=== PATIENT | male | born 1970 | race Two or more races ===

== ENCOUNTER 2020-06-03 21:10 | Emergency (ER) | payer OTHER, SELFPAY ==
[2020-06-03 21:19] VITALS: BP 138/74; PULSE 87; RESP 15; TEMP 36.2; O2SAT 98; BMI 32.4
[2020-06-03 23:19] VITALS: BP 112/68; PULSE 75; RESP 16; TEMP 36.8; O2SAT 99
--- NOTE | 2020-06-04 | US_ITS ---
EXAMINATION: DOPPLER VENOUS ULTRASOUND EXTREMITY, RIGHT CLINICAL INFORMATION: Right lower extremity edema and swelling. COMPARISON: None. TECHNIQUE: Mei-scale, Doppler and spectral analysis of the lower extremity was performed. FINDINGS: There is no evidence for a deep venous thrombosis within the visualized lower extremity veins. There is normal flow, compression and augmentation. ADDITIONAL FINDINGS: No Evans's cyst is identified. IMPRESSION: Unremarkable examination. Specifically, no evidence for DVT.
--- NOTE | 2020-06-04 00:10 | PC.NURSE ---
Pt left leg is red and swollen, pt reports he believe he got bitten by something. pt reports having a headache and chills.
[2020-06-04 00:44] LABS: MANUAL DIFF FLAG NO
[2020-06-04 00:51] LABS: Basophils Percent Auto 0.2 % (0-2); Eosinophils Absolute Auto 0.1 X10*3/uL (0.0-0.4); Eosinophils Percent Auto 0.7 % (0-4); Hematocrit 40.5 % (42-52); Hemoglobin 13.6 g/dl (14.0-18.0); Imm Gran Abs Auto 0.07 X10*3/uL (0.00-0.03); Imm Gran Pct Auto 0.6 % (0.0-0.4); Lymphocytes Percent Auto 9.2 % (20-40); Mean Corpuscular HGB Conc 33.6 g/dl (31.0-36.0); Mean Corpuscular Hemoglobin 27.5 pg (27.0-33.0); Mean Platelet Volume 10.7 fL (9.4-12.4); Monocytes Absolute Auto 0.8 X10*3/uL (0.1-1.2); Neutrophils Absolute Auto 9.2 X10*3/uL (2.0-8.3); Neutrophils Percent Auto 82.3 % (45-73); Platelet Count 138 X10*3/uL (160-400); Red Blood Count 4.94 X10*6/uL (4.60-5.80); Red Cell Distribution Width 13.6 % (11.0-16.0); White Blood Count 11.2 X10*3/uL (4.8-10.8)
[2020-06-04 01:07] LABS: Partial Thromboplastin Time 94.8 SEC (24.1-38.0)
--- NOTE | 2020-06-04 01:25 | ED_ITS ---
HPI - General Adult General Chief complaint: General Medical Stated complaint: RED INFLAMED SKIN Time Seen by Provider: 06/04/20 00:19 History of Present Illness HPI narrative: this is a 50-year-old male who presents with 3 days of worsening right lower extremity swelling, redness, pain and a noted scab to the posterior aspect that he thinks may have been a spider bite. He states he really did not notice anything until about 3 days ago he experienced transient fevers and chills which then resolved and were not associated with any sore throat, new cough, diarrhea, urinary symptoms, or recent travel. He then endorses that 2 days ago he noticed that his right lower leg began increasing in size and he noticed the red patches And then today began worsening with increased pain on ambulation, swelling but denies any fevers, chills. In addition, he denies any abdominal pain, nausea, vomiting. Related Data Allergies Allergy/AdvReac Type Severity Reaction Status Date / Time No Known Allergies Allergy Verified 06/03/20 21:19 Review of Systems Review of Systems: Pertinent positives and negatives as stated in HPI 10 point review of systems is otherwise negative. PMFSH Past Medical History Medical History Hypothyroid Social History Social History Smoking Status: Light tobacco smoker Smoked in Last 30 Days: Yes Use of substances other than those prescribed or required for medical reasons: No Advance Directives: No Advance Directives Information Provided: No Physical Exam Vital Signs and I&O and Narrative: Vital Signs and I&O: Vital Signs Temp 98.3 F 06/03/20 23:19 Pulse 75 06/03/20 23:19 Resp 16 06/03/20 23:19 BP 112/68 06/03/20 23:19 Pulse Ox 99 06/03/20 23:19 Intake & Output 06/03/20 06/04/20 06/04/20 18:59 06:59 18:59 Weight 88.451 kg Body Mass Index 32.4 VITAL SIGNS: Reviewed. GENERAL: Well developed, well nourished, in no acute distress. HEAD: Normocephalic/atraumatic, EYES: PERRLA, EOMI intact without pain, no nystagmus/pallor/icterus noted EARS: Ext canals without abnormality, TMs non-bulging and non-erythematous NOSE: Nares patent bilateral OROPHARYNX: no oral lesions noted, posterior pharynx clear and non-erythematous without noted tonsillar enlargement/erythema/exudates NECK: Supple, no adenopathy LUNGS: Normal breath sounds. No adventitious sounds or accessory muscle use. SpO2<> CARDIOVASCULAR: Regular rate and rhythm without noted murmurs, no JVD or lower extremity edema. ABDOMEN: Soft, non-tender, non-distended with bowel sounds. No rigidity. No guarding. No palpable masses or hernias noted MUSCULOSKELETAL: No tenderness, deformities, or effusions noted on gross inspection. EXTREMITIES: RLE is edematous without pitting and has large purpuric lesions to the circumferential aspect with a noted eschar and no evidence of necrosis. Pulses and capillary refill are present. Swelling involves ankle and foot. SKIN: Inspection of the skin reveals no rashes, ulcerations, jaundice, pallor, or petechiae. NEUROLOGIC: Alert and oriented x 4. Strength and sensation to light touch were grossly intact Course Course Hospital Course: Review of all lab work and venous duplex significant for prolonged PT/PTT, mild leukocytosis, thrombocytopenia, and an elevated ESR. There was no evidence of DVT. Patient was informed that he may need to be admitted for further observation given the results that were discussed with him. He declined admission, stating that he had to get to [place] today . He was informed that a a minimum he would need to be on empiric antibiotics with close PCP follow up and stated understanding. I was informed by nursing that patient eloped without paperwork or prescriptions. Medical Decision Making MDM Narrative Medical decision making narrative: This is a 50-year-old male with history and clinical presentation most consistent with toxin related insect bite, but will rule out DVT or cellulitis. Lab Data Result diagrams: 06/04/20 00:37 06/04/20 00:37 Labs: Lab Results 06/04/20 06/04/20 06/04/20 Range/Units 00:37 00:37 00:37 WBC 11.2 H (4.8-10.8) X10*3/uL RBC 4.94 (4.60-5.80) X10*6/uL Hgb 13.6 L (14.0-18.0) g/dl Hct 40.5 L (42-52) % MCV 82.0 (80-98) fL MCH 27.5 (27.0-33.0) pg MCHC 33.6 (31.0-36.0) g/dl RDW 13.6 (11.0-16.0) % Plt Count 138 L (160-400) X10*3/uL MPV 10.7 (9.4-12.4) fL Immature Gran % (Auto) 0.6 H (0.0-0.4) % Neut % (Auto) 82.3 H (45-73) % Lymph % (Auto) 9.2 L (20-40) % [place] % (Auto) 7.0 (2-11) % Eos % (Auto) 0.7 (0-4) % Baso % (Auto) 0.2 (0-2) % Neut # (Auto) 9.2 H (2.0-8.3) X10*3/uL Lymph # (Auto) 1.0 L (1.2-4.9) X10*3/uL [place] # (Auto) 0.8 (0.1-1.2) X10*3/uL Eos # (Auto) 0.1 (0.0-0.4) X10*3/uL Baso # (Auto) 0.0 (0.0-0.2) X10*3/uL Abs Immat Gran (auto) 0.07 H (0.00-0.03) X10*3/uL Absolute Nucleated RBC 0.000 (0.0-0.012) X10*3/uL Nucleated RBC % (auto) 0.0 (0.0-0.2) /100WBC ESR 54 H (0-15) MM/HR PT 13.6 H (10.8-13.0) SEC INR 1.1 (0.9-1.1) APTT 94.8 H* (24.1-38.0) SEC Sodium (135-145) mmol/L Potassium (3.3-5.1) mmol/l Chloride (96-108) mmol/L Carbon Dioxide (22-29) mmol/L Anion Gap (12-20) BUN (9-16) mg/dL Creatinine (0.5-1.4) mg/dL Estim Creat Clear Calc Estimated GFR Random Glucose (60-115) mg/dL Calcium (8.4-10.2) mg/dL Total Bilirubin (0.0-1.0) mg/dL AST (5-37) U/L ALT (0-40) U/L Alkaline Phosphatase (39-117) U/L Total Protein (6.5-8.0) g/dL Albumin (3.5-5.0) g/dL 06/04/20 06/04/20 Range/Units 00:37 01:49 WBC (4.8-10.8) X10*3/uL RBC (4.60-5.80) X10*6/uL Hgb (14.0-18.0) g/dl Hct (42-52) % MCV (80-98) fL MCH (27.0-33.0) pg MCHC (31.0-36.0) g/dl RDW (11.0-16.0) % Plt Count (160-400) X10*3/uL MPV (9.4-12.4) fL Immature Gran % (Auto) (0.0-0.4) % Neut % (Auto) (45-73) % Lymph % (Auto) (20-40) % [place] % (Auto) (2-11) % Eos % (Auto) (0-4) % Baso % (Auto) (0-2) % Neut # (Auto) (2.0-8.3) X10*3/uL Lymph # (Auto) (1.2-4.9) X10*3/uL [place] # (Auto) (0.1-1.2) X10*3/uL Eos # (Auto) (0.0-0.4) X10*3/uL Baso # (Auto) (0.0-0.2) X10*3/uL Abs Immat Gran (auto) (0.00-0.03) X10*3/uL Absolute Nucleated RBC (0.0-0.012) X10*3/uL Nucleated RBC % (auto) (0.0-0.2) /100WBC ESR (0-15) MM/HR PT 13.6 H (10.8-13.0) SEC INR 1.1 (0.9-1.1) APTT (24.1-38.0) SEC Sodium 136 (135-145) mmol/L Potassium 4.6 (3.3-5.1) mmol/l Chloride 101 (96-108) mmol/L Carbon Dioxide 29 (22-29) mmol/L Anion Gap 11 L (12-20) BUN 19 H (9-16) mg/dL Creatinine 1.04 (0.5-1.4) mg/dL Estim Creat Clear Calc 88.8 Estimated GFR > 60 Random Glucose 118 H (60-115) mg/dL Calcium 8.4 (8.4-10.2) mg/dL Total Bilirubin 0.6 (0.0-1.0) mg/dL AST 28 (5-37) U/L ALT 32 (0-40) U/L Alkaline Phosphatase 61 (39-117) U/L Total Protein 6.7 (6.5-8.0) g/dL Albumin 4.1 (3.5-5.0) g/dL Discharge Plan Discharge Clinical Impression: Abscess or cellulitis of foot Patient Disposition: Elopement Discharge Date/Time: 06/04/20 02:40
[2020-06-04 01:36] LABS: INTERNATIONAL NORM RATIO 1.1 (0.9-1.1); Prothrombin Time 13.6 SEC (10.8-13.0)
[2020-06-04 01:38] LABS: Erythrocyte Sedimentation Rate 54 MM/HR (0-15)
--- NOTE | 2020-06-04 01:44 | PC.NURSE ---
Notified pt there could be a possibility of pt could be admitted. pt reports he can not stay in hospital . provider is aware.
[2020-06-04 01:56] LABS: Alanine Aminotransferase 32 U/L (0-40); Albumin Level 4.1 g/dL (3.5-5.0); Alkaline Phosphatase 61 U/L (39-117); Anion Gap 11 (12-20); Aspartate Amino Transferase 28 U/L (5-37); Bilirubin Total 0.6 mg/dL (0.0-1.0); Blood Urea Nitrogen 19 mg/dL (9-16); Calcium 8.4 mg/dL (8.4-10.2); Carbon Dioxide 29 mmol/L (22-29); Chloride 101 mmol/L (96-108); Creatinine Clr Calc Pharmacy 88.8; Estimated Glomerular Filt Rate > 60; Glucose Random 118 mg/dL (60-115); Potassium 4.6 mmol/l (3.3-5.1); Sodium 136 mmol/L (135-145); Total Protein 6.7 g/dL (6.5-8.0)
[2020-06-04 02:09] LABS: INTERNATIONAL NORM RATIO 1.1 (0.9-1.1); Prothrombin Time 13.6 SEC (10.8-13.0)
== END 2020-06-04 02:40 | disposition left against medical advice (07) ==
LOC: HO.ED 06-04 00:27
PROVIDERS: Student in an Organized Health Care Education/Training Program; Emergency Provider Emergency Medicine
DX: M79.671 Pain in right foot (principal); M79.89 Other specified soft tissue disorders
CPT/HCPCS: 36415; 80053; 85025; 85610; 85652; 85730; 90471; 93971; 99284

== ENCOUNTER 2020-06-22 21:04 | Emergency (ER) | payer OTHER, SELFPAY ==
[2020-06-22 21:08] VITALS: BP 114/64; PULSE 80; RESP 16; TEMP 36.8; O2SAT 97; BMI 39.0
--- NOTE | 2020-06-22 21:52 | CT_ITS ---
EXAMINATION: CT HEAD WITHOUT CONTRAST CT CERVICAL SPINE WITHOUT CONTRAST CLINICAL INFORMATION: Trauma COMPARISON: None. TECHNIQUE: Multidetector CT imaging of the head and cervical spine was performed without the use of intravenous contrast. Multiplanar reformats are reviewed. This CT examination was performed using dose optimization techniques as appropriate, variously including the following: *Automated exposure control *Adjustment of mA and/or kV according to patient size (this includes techniques or standardized protocols for targeted exams where dose is matched to indication/reason for exam; i.e. extremities or head) *Use of iterative reconstruction technique DLP: 1473 mGy-cm. FINDINGS: There is no evidence of acute intracranial hemorrhage or territorial infarction. No abnormal mass effect or midline shift is seen. Mei to white matter differentiation is well preserved. No extra-axial fluid collections are identified. The ventricles are normal in size. There is no abnormal attenuation within the brain parenchyma. The osseous structures and soft tissues are normal. The mastoid air cells and visualized portions of the paranasal sinuses are well-aerated. Atlantooccipital alignment is maintained. The vertebral bodies and posterior elements align normally. No acute fracture or subluxation. Vertebral body heights are maintained. Small endplate osteophytes present throughout the cervical spine. The cervicomedullary junction and spinal cord are grossly unremarkable. The paraspinal soft tissues are unremarkable. The imaged lung apices are clear IMPRESSION: No acute intracranial pathology. No cervical spine fracture or subluxation.
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
== END 2020-06-22 23:58 | disposition home or self-care (01) ==
PROVIDERS: Emergency Provider Emergency Medicine
DX: S13.4XXA Sprain of ligaments of cervical spine, initial encounter (principal); S13.9XXA Sprain of joints and ligaments of unspecified parts of neck, initial encounter; V49.60XA Unspecified car occupant injured in collision with unspecified motor vehicles in traffic accident, initial encounter; F17.219 Nicotine dependence, cigarettes, with unspecified nicotine-induced disorders; Y93.89 Activity, other specified; Y92.414 Local residential or business street as the place of occurrence of the external cause; Y99.9 Unspecified external cause status
CPT/HCPCS: 70450; 72125; 99284

== ENCOUNTER 2023-07-14 09:17 | Emergency (ER) | payer OTHER, SELFPAY ==
--- NOTE | ~2023-07-14 | XR_ITS ---
EXAMINATION: XR CHEST CLINICAL INFORMATION: Reason for Exam cough, SOB COMPARISON: None TECHNIQUE: 2 views of the chest FINDINGS: Lines and tubes: None. Clear lungs. No pleural effusion. No pneumothorax. Normal cardiomediastinal silhouette. XR/XR chest 2V IMPRESSION: * Clear lungs.
[2023-07-14 09:35] VITALS: BP 129/69; PULSE 61; RESP 20; TEMP 36.4; O2SAT 98; BMI 40.1
--- NOTE | 2023-07-14 10:36 | ED_ITS ---
HPI - URI/Sore Throat General Chief Complaint: Upper Respiratory Symptoms Stated Complaint: Cough 1 week Time Seen by Provider: 07/14/23 10:12 Source: patient Mode of arrival: ambulatory Limitations: no limitations History of Present Illness HPI Narrative: patient is a 54-year-old male who presents emergency department for evaluation of upper respiratory symptoms. He has been experiencing a intermittent product azra cough with yellow phlegm, nasal congestion for 1 week, shortness of breath with exertion as this provokes cough. Denies fevers, chills, headache, neck pain, sore throat, chest pain, difficulty breathing while at rest, nausea vomiting, abdominal pain, numbness or tingling of the extremities, edema. Denies any known sick contacts. Related Data Previous Rx's Medication Instructions Recorded cyclobenzaprine 10 mg tablet 10 mg PO TID PRN muscle spasm #14 06/22/20 tabs albuterol sulfate 90 mcg/actuation 2 puff inhalation Q4-6H PRN 07/14/23 aerosol inhaler shortness of breath or wheezing #6.7 grams azithromycin 250 mg tablet See Rx Instructions PO .COMPLEX #6 07/14/23 tabs prednisone 20 mg tablet 40 mg (2 x 20 mg) PO DAILY #10 tabs 07/14/23 Allergies Allergy/AdvReac Type Severity Reaction Status Date / Time No Known Allergies Allergy Verified 06/03/20 21:19 Review of Systems Review of Systems: Yes all other systems are reviewed and are negative [facility] Past Medical History Attestation statement: The following information was validated with the patient. Source: old records reviewed Medical History Hypothyroid Social History Social History Alcohol intake: never Advance Directives: No Advance Directives Information Provided: No Physical Exam Vital Signs: Vital Signs: Last Vital Signs Temp 98.0 F 07/14/23 12:04 Pulse 56 07/14/23 12:04 Resp 18 07/14/23 12:04 BP 112/66 07/14/23 12:04 Pulse Ox 97 07/14/23 12:04 O2 Del Method Room Air 07/14/23 12:04 BMI result Body Mass Index 40.1 Appearance: Alert.?Oriented to person, place and time. No acute distress.?Normal affect. Eyes: Pupils equal, round and reactive to light.? ENT: TM normal bilaterally. Pharynx normal.?? Neck: Normal inspection.? Neck supple.??No cervical adenopathy CVS: Heart sounds normal. Normal heart rate and rhythm.? Pulses normal.?? Respiratory: No respiratory distress.? Lung sounds clear With rhonchi bilaterally and faint inspiratory wheezing? to the upper lobes Abdomen: Soft and non-tender. Normoactive bowel sounds. Skin: Skin warm and dry.? Normal skin color.? ? Extremities: No lower extremity edema.? Neuro: Moves all extremities spontaneously. Sensation intact bilaterally. No motor deficits. Ambulates with normal steady gait. Medical Decision Making Medical Decision Making [facility] Narrative: Patient is a 53-year-old male, presenting for evaluation of upper respiratory symptoms. COVID-19 testing _. Influenza testing _. RSV testing _. At this time history and physical exam not consistent with ACS/PE. Chest x-ray reveals _. Overall he is well-appearing, nontoxic, afebrile, no tachycardia or tachypnea/hypoxia. Speaking clear full sentences, ambulatory with steady gait. Rhonchi with faint inspiratory wheezing bilaterlal, sent RX for Albuterol inha ler, and prednisone, Discussed conservative treatment including rest, hydration, Tylenol/ibuprofen as needed for fever and body aches, saline nasal spray, humidifier, [id number] cold medication. Advised to follow-up with primary care provider as needed, discussed reasons to return back to the emergency department. All questions were answered. Patient discharged home in stable condition. Provided with a return to work/school note. Offered Tamiflu Offered monoclonal antibody Differential Diagnosis Differential Diagnoses: The differential diagnosis associated with the presentation includes ( as noted above) Lab Data [facility] Lab Attestation statement: I reviewed the patient's lab results. ( as noted above) Labs: Lab Results 07/14/23 Range/Units 09:48 Influenza Type A (PCR) NEGATIVE (Negative) Influenza Type B (PCR) NEGATIVE (Negative) RSV RNA Qual (PCR) NEGATIVE (Negative) SARS-CoV-2 RNA (RT-PCR) NEGATIVE (Negative) Independent Interpretation I performed an independent interpretation of an: Plain X-Ray ( I personally interpreted chest x-ray and agree with radiologist impression.) Radiology Impression Discussion of test interpretation with radiology: I have reviewed the radiologist's reading. External Record Review External record reviewed: Outpatient record Prescription Management I considered prescription management with: Antibiotic and Other ( Albuterol inhaler, prednisone) Discharge Plan Discharge Clinical Impression: Bronchitis Patient Disposition: Home, Self-Care Instructions: Acute Bronchitis (ED) Prescriptions: New prednisone 20 mg tablet 40 mg PO DAILY Qty: 10 0RF albuterol sulfate 90 mcg/actuation HFA aerosol inhaler 2 puff inhalation Q4-6H PRN (Reason: shortness of breath or wheezing) Qty: 6.7 0RF azithromycin 250 mg tablet See Rx Instructions .ROUTE .COMPLEX Qty: 6 0RF Rx Instructions: For 250 mg dose pack: take 500 mg today (day 1), then 250 mg for 4 days (days 2-5) No Action cyclobenzaprine 10 mg tablet 10 mg PO TID PRN (Reason: muscle spasm) Qty: 14 0RF Interventions: ED Discharge Assessment Last Done: 07/14/23 12:16 Discharge Date/Time: 07/14/23 12:17
[2023-07-14 10:48] LABS: Influenza A PCR NEGATIVE (Negative); Influenza B PCR NEGATIVE (Negative); Resp Syncy Virus RNA Qual PCR NEGATIVE (Negative); SARS COV2 PCR INHOUSE NEGATIVE (Negative)
[2023-07-14 12:04] VITALS: BP 112/66; PULSE 56; RESP 18; TEMP 36.7; O2SAT 97
== END 2023-07-14 12:17 | disposition home or self-care (01) ==
PROVIDERS: Emergency Provider Emergency Medicine Emergency Medical Services
DX: J40 Bronchitis, not specified as acute or chronic (principal); R06.02 Shortness of breath; Z20.822 Contact with and (suspected) exposure to COVID-19; Z20.828 Contact with and (suspected) exposure to other viral communicable diseases
CPT/HCPCS: 0241U; 71046; 99283

== ENCOUNTER 2024-09-20 21:09 | Emergency (ER) | payer MEDICAID, SELFPAY ==
--- NOTE | ~2024-09-20 | CT_ITS ---
CLINICAL HISTORY: low back pain CT lumbar spine without contrast Comparison: None Findings: Normal vertebral body alignment. There are no fractures or subluxations. There is a diffuse annular bulge at the L1-L2 level deforming dural sac. There is an associated osteophytic ridge. There is narrowing of the right neural foramen at this level. There is a large diffuse annular bulge at the L4-5 level. There is facet arthropathy and ligamentum flavum hypertrophy at this level with severe central spinal stenosis. There is bilateral foraminal narrowing at this level. There is a least moderate central spinal stenosis at the L3-4 level. There is degenerative disc disease with disc space narrowing at L4-5 and L5-S1. Moderate central spinal stenosis at L3-L4. Visualized abdominal contents unremarkable. Facet arthropathy is noted particularly at the L3-4 through L5-S1 levels. No bony destructive changes are noted. The paraspinal soft tissues are unremarkable. IMPRESSION: 1. No acute abnormalities are noted. 2. Diffuse annular bulge forms the dural sac at the L1-L2 level. There is bilateral foraminal narrowing at this level. 3. Diffuse bulge at the L4-5 level with central spinal stenosis and bilateral neural foraminal narrowing. 4. Degenerating discs and facet arthropathy as above. This document has been electronically signed by: Richard Mckeon MD on 09/20/2024 23:30:36
[2024-09-20 21:11] VITALS: BP 136/68; PULSE 79; RESP 18; TEMP 36.9; O2SAT 95; BMI 38.8
--- NOTE | 2024-09-20 21:52 | ED_ITS ---
HPI - General Adult General Chief complaint: Back Pain/Injury Stated complaint: Back Pain Time Seen by Provider: 09/20/24 21:52 Source: patient Mode of arrival: ambulatory Limitations: no limitations History of Present Illness ED Provider: Elba Jorgensen PA-C HPI narrative: Patient is a 54 year old assigned male at with a history of multiple disc issues presenting to the emergency department today with back pain. Patient states that yesterday he took a nap after eating and woke up with low back pain that radiates into both of his thighs. Patient states that he has had issues with his sciatic nerve before and this feels different. Patient states that he has a history of multiple discs in his back having issues but is not sure what discs or what issues. Patient denies any numbness, tingling, or difficulty ambulating. Patient states that the pain is worse when he turns certain directions. Patient denies any dizziness, lightheadedness, abdominal pain, nausea, vomiting, fever, chills, blurry vision, double vision, loss of vision, chest pain, difficulty breathing, shortness of breath, night sweats, pain with urination, increased urinary frequency, increased urinary urgency, blood in his urine or stool, syncope or a near syncopal episode, recent trauma or falls, bowel incontinence, bladder incontinence, or any other complaints at this time. Onset (ago): day(s) (1) Location: back Radiation: extremity and distal Relieving factors: none Exacerbating factors: movement Associated symptoms: denies other symptoms Treatments prior to arrival: none Related Data Previous Rx's ?Medication ?Instructions ?Recorded cyclobenzaprine 10 mg tablet 10 mg PO TID PRN muscle spasm #14 06/22/20 tabs albuterol sulfate 90 mcg/actuation 2 puff inhalation Q4-6H PRN 07/14/23 aerosol inhaler shortness of breath or wheezing #6.7 grams azithromycin 250 mg tablet See Rx Instructions PO .COMPLEX #6 07/14/23 tabs prednisone 20 mg tablet 40 mg (2 x 20 mg) PO DAILY #10 tabs 07/14/23 Allergies Allergy/AdvReac Type Severity Reaction Status Date / Time No Known Allergies Allergy Verified 09/20/24 21:17 Review of Systems 2 Constitutional: Constitutional: Reports no additional constitutional complaints, Denies chills, Denies fever(s) and Denies night sweats Eyes: Eyes: Reports no additional eye complaints, Denies blurry vision, Denies change in vision, Denies diplopia, Denies eye discharge, Denies loss of vision and Denies eye pain ENT: Denies dizziness Cardiovascular: Cardiovascular: Reports no additional cardiovascular complaints, Denies chest pain, Denies lightheadedness, Denies Loss of Consciousness and Denies dyspnea Respiratory: Respiratory: Reports no additional respiratory complaints and Denies dyspnea Gastrointestinal: Gastrointestinal: Reports no additional gastrointestinal complaints, Denies abdominal pain, Denies melena, Denies hematochezia, Denies change in bowel habits and Denies change in stool character Genitourinary: Genitourinary: Reports no additional male genitourinary complaints, Denies hematuria, Denies oliguria, Denies difficulty urinating, Denies dysuria, Denies urinary frequency, Denies urinary hesitancy, Denies urinary incontinence and Denies urinary urgency Musculoskeletal: Musculoskeletal: Reports no additional musculoskeletal complaints, Denies numbness and Denies tingling Comments: back pain Neurologic: Denies dizziness, Denies loss of vision, Denies numbness and Denies tingling Psychiatric: Psychiatric: Reports no additional psychiatric complaints Endocrine: Endocrine: Reports no additional endocrine complaints Hematologic/Lymphatic: Hematologic/Lymphatic: Reports no additional hematologic/lymphatic complaints Allergic/Immunologic: Allergic/Immunologic: Reports no additional allergic/immunologic complaints PMFSH Past Medical History Attestation statement: The following information was validated with the patient. Source: old records reviewed and nursing notes reviewed Medical History Hypothyroid Social History Social History Alcohol intake: never Advance Directives: No Advance Directives Information Provided: No Do you have a plan to hurt others: No Plan Physical Exam ED Vital Signs: Vital Signs - 24 hr 09/20/24 21:11 Temperature 98.5 F Pulse Rate 79 Respiratory Rate 18 Blood Pressure 136/68 Pulse Oximetry 95 Oxygen Delivery Method Room Air BMI result Body Mass Index 38.8 Const General: cooperative, no acute distress, alert and awake Nutritional Appearance: well nourished Orientation/consciousness: patient oriented x3 Limitations: no limitations HENMT Head: Yes normal to inspection and Yes atraumatic Ears: hearing grossly normal bilaterally and external ears normal General nose exam: Normal external nose present, no nasal discharge noted and no epistaxis Face and sinus: Yes normal facial exam, No abrasion and No laceration Mouth: Normal oral and palatal mucosa present, no drooling and no muffled voice Eyes General: appearance normal, both eyes and all related structures Periorbital: periorbital findings normal Eyelids: Yes eyelids normal Conjunctivae: conjunctivae normal Pupils: Equal, round and reactive pupils present EOM: EOMs intact bilaterally Neck Neck: Yes normal visual inspection, Yes full ROM and Yes no lymphadenopathy Chest Chest palpation & inspection: normal inspection of the chest Resp Effort & Inspection: normal respiratory effort and able to speak in complete sentences GI Inspection: Yes normal to inspection General: Yes no CVA tenderness Back/Spine/Pelvis Back: no CVA tenderness Cervical Spine: normal cervical lordosis and cervical ROM normal Thoracic/Lumbar Spine: thoracic and lumbar spine normal to inspection and thoraco-lumbar ROM normal Pelvis: no pain with anterior-posterior compression Neuro General: patient oriented x3 and moves all extremities Cranial nerves: Yes Equal, round and reactive pupils present Cognition (Neuro): normal cognition Extrem General: Yes normal to inspection, Yes full ROM and Yes capillary refill normal Psych Appearance: grossly normal Mental Status: mental status grossly normal Affect: normal affect Attitude: cooperative Thought process: Normal thought process present Thought content: Normal thought content present Insight: Good insight present (Psych) Medications Administered Discontinued Medications Generic Name Dose Route Start Last Admin Trade Name Freq PRN Reason Stop Dose Admin Cyclobenzaprine HCl 5 mg 09/20/24 21:57 09/20/24 23:19 Cyclobenzaprine Hcl 5 Mg Tablet PO 09/20/24 21:58 5 mg ONCE ONE Administration Diazepam 2.5 mg 09/20/24 21:57 09/20/24 23:43 Diazepam 10 Mg/2 Ml Cartridge IVPUSH 09/20/24 21:58 2.5 mg STAT STA Administration Ketorolac Tromethamine 15 mg 09/20/24 21:57 09/20/24 23:43 Ketorolac Tromethamine 15 Mg/Ml Vial IVPUSH 09/20/24 21:58 15 mg ONCE ONE Administration Methylprednisolone Sodium Succinate 60 mg 09/20/24 23:44 09/20/24 23:49 Methylprednisolone Sod Succ 125 Mg/2 Ml Vial IVPUSH 09/20/24 23:45 60 mg ONCE ONE Administration Medical Decision Making Medical Decision Making [facility] Narrative: Patient is a 54 year old assigned male at with a history of multiple disc issues presenting to the emergency department today with back pain. Patient's physical exam was unremarkable. Patient's blood work was unremarkable. Patient's EKG was unremarkable. Patient's lumbar spine CT showed diffuse annular bulge from the dural sac at the L1-L2 level with bilateral foraminal narrowing and diffuse bulge at the L4-5 level with central spinal stenosis and bilateral neural foraminal narrowing as well as degenerating discs and facet arthropathy with disc space narrowing at L4-5 + and L5-S1. I explained my physical exam findings as well as all test results to the patient. I answered all questions asked by the patient. Patient received IV valium, toradol, solu-medrol, and PO Flexeril which, upon re-evaluation, he stated it helped his pain significantly. I stressed the importance of the patient taking his medication as directed (either prescribed or as the over the counter packaging recommends). 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 I stressed the importance of the patient returning to the emergency department immediately if his symptoms were to worsen or if he were to develop any dizziness, shortness of breath, difficulty breathing, chest pain, blurry vision, loss of vision, nausea, vomiting, abdominal pain, fever, chills, back pain, or any other complaints. Patient verbalized agreement and understanding with this treatment plan and discharge. Differential Diagnosis Differential Diagnoses: The differential diagnosis associated with the presentation includes Disc disease Bulging disc Lumbar spine strain Lumbar spine sprain Admission/Observation Consideration of admission/observation: Escalation of care including admission/observation considered Patient would have been admitted to the hospital had his work up had any findings where hospital admission was appropriate and his clinical presentation warranted hospital admission. Lab Data [facility] Lab Attestation statement: I reviewed the patient's lab results. My interpretation of these results are in the MDM Rationale portion of this note. 09/20/24 22:50 09/20/24 22:50 Labs: Lab Results 09/20/24 Range/Units 22:50 WBC 5.6 (4.8-10.8) X10*3/uL RBC 5.09 (4.60-5.80) X10*6/uL Hgb 14.1 (14.0-18.0) g/dl Hct 40.7 L (42.0-52.0) % MCV 80.0 (80.0-98.0) fL MCH 27.7 (27.0-33.0) pg MCHC 34.6 (31.0-36.0) g/dl RDW 13.3 (11.0-16.0) % Plt Count 159 L (160-400) X10*3/uL MPV 10.7 (9.4-12.4) fL Immature Gran % (Auto) 0.5 H (0.0-0.4) % Neut % (Auto) 75.5 H (45-73) % Lymph % (Auto) 8.5 L (20-40) % [place] % (Auto) 14.6 H (2-11) % Eos % (Auto) 0.4 (0-4) % Baso % (Auto) 0.5 (0-2) % Lymph # (Auto) 0.5 L (1.2-4.9) X10*3/uL [place] # (Auto) 0.8 (0.1-1.2) X10*3/uL Eos # (Auto) 0.0 (0.0-0.4) X10*3/uL Baso # (Auto) 0.0 (0.0-0.2) X10*3/uL Abs Immat Gran (auto) 0.03 (0.00-0.03) X10*3/uL Absolute Neuts (auto) 4.3 (2.0-8.3) x10*3/uL Absolute Nucleated RBC 0.000 (0.0-0.012) X10*3/uL Nucleated RBC % (auto) 0.0 (0.0-0.2) /100WBC Sodium 134 L (135-145) mmol/L Potassium 4.1 (3.3-5.1) mmol/L Chloride 102 (96-108) mmol/L Carbon Dioxide 24 (22-29) mmol/L Anion Gap 12 (12-20) BUN 10 (9-16) mg/dL Creatinine 0.80 (0.5-1.4) mg/dL Estim Creat Clear Calc 120.9 Estimated GFR > 60 Random Glucose 104 (60-115) mg/dL Calcium 8.4 (8.4-10.2) mg/dL Magnesium 1.9 (1.6-2.6) mg/dL Total Bilirubin 0.8 (0.0-1.0) mg/dL AST 25 (5-37) U/L ALT 25 (0-40) U/L Alkaline Phosphatase 69 (39-117) U/L Troponin I High Sens < 2.7 (<3.5-35.0) ng/L Total Protein 6.9 (6.5-8.0) g/dL Albumin 4.2 (3.5-5.0) g/dL Independent Interpretation I performed an independent interpretation of an: EKG and CT Scan Interpretation: My interpretation is in agreement with the radiologist's impression of this imaging study. L Report Number: [id number]: Total DLP = 746.00 mGy-cm CLINICAL HISTORY: low back pain CT lumbar spine without contrast Comparison: None Findings: Normal vertebral body alignment. There are no fractures or subluxations. There is a diffuse annular bulge at the L1-L2 level deforming dural sac. There is an associated osteophytic ridge. There is narrowing of the right neural foramen at this level. There is a large diffuse annular bulge at the L4-5 level. There is facet arthropathy and ligamentum flavum hypertrophy at this level with severe central spinal stenosis. There is bilateral foraminal narrowing at this level. There is a least moderate central spinal stenosis at the L3-4 level. There is degenerative disc disease with disc space narrowing at L4-5 and L5-S1. Moderate central spinal stenosis at L3-L4. Visualized abdominal contents unremarkable. Facet arthropathy is noted particularly at the L3-4 through L5-S1 levels. No bony destructive changes are noted. The paraspinal soft tissues are unremarkable. IMPRESSION: 1. No acute abnormalities are noted. 2. Diffuse annular bulge forms the dural sac at the L1-L2 level. There is bilateral foraminal narrowing at this level. 3. Diffuse bulge at the L4-5 level with central spinal stenosis and bilateral neural foraminal narrowing. 4. Degenerating discs and facet arthropathy as above. This document has been electronically signed by: Richard Mckeon MD on 09/20/2024 23:30:36 Dictated By: Richard Mckeon MD Signed By: Electronically signed by Richard Mckeon MD 09/20/24 1909 I independently interpreted this EKG and am in agreement with the below findings: Vent. Rate: 76 BPM Atrial Rate: 76 BPM P-R Int: 162 ms QRS Dur: 90 ms QT Int: 392 ms P-R-T Axes: 58 -31 18 degrees QTcB Int: 441 ms Normal sinus rhythm Left axis deviation No previous ECGs available DD/ 27 Radiology Impression Discussion of test interpretation with radiology: I have reviewed the radiologist's reading. Discharge Plan Discharge Clinical Impression: Bulging lumbar disc Patient Disposition: Home, Self-Care Instructions: Acute Low Back Pain (ED), Degenerative Disc Disease (ED) Additional Instructions: Your CT scan showed: Diffuse annular bulge from the dural sac at the L1-L2 level with bilateral foraminal narrowing. Diffuse disc bulge at the L4-5 level with central spinal stenosis and bilateral neural foraminal narrowing. Your lab work was unremarkable. At this time - there are no findings that need to be addressed emergently. Follow up with your primary care provider and either a spine or a pain specialist. I have provided you with multiple numbers to establish and follow up with either of those specialties. Return to the emergency department immediately if your symptoms worsen or if you develop any loss of bowel or bladder function, bowel or bladder incontinence, dizziness, shortness of breath, difficulty breathing, chest pain, blurry vision, loss of vision, nausea, vomiting, abdominal pain, fever, chills, or any other complaints. Prescriptions: No Action cyclobenzaprine 10 mg tablet 10 mg PO TID PRN (Reason: muscle spasm) Qty: 14 0RF prednisone 20 mg tablet 40 mg PO DAILY Qty: 10 0RF albuterol sulfate 90 mcg/actuation HFA aerosol inhaler 2 puff inhalation Q4-6H PRN (Reason: shortness of breath or wheezing) Qty: 6.7 0RF azithromycin 250 mg tablet See Rx Instructions .ROUTE .COMPLEX Qty: 6 0RF Rx Instructions: For 250 mg dose pack: take 500 mg today (day 1), then 250 mg for 4 days (days 2-5) Referrals: [facility] Family [facility] [Provider Group] (Call to establish and follow up with a primary care provider. If you already have a primary care provider, please follow up with them.) [facility] Primary Care, [facility] [Provider Group] (Call to establish and follow up with a primary care provider. If you already have a primary care provider, please follow up with them.) [facility] Primary Care,[facility] [Provider Group] (Call to establish and follow up with a primary care provider. If you already have a primary care provider, please follow up with them.) [facility] Sp[facility] [Provider Group] (Call to establish and follow up with a fisheries specialist.) [facility] Pain Management [Provider Group] (Call to establish and follow up with a pain specialist.) [facility] [Provider Group] (Call to establish and follow up with a fisheries specialist.) Stand Alone Forms: Work/School Release Print Language: Frisian
--- NOTE | 2024-09-20 21:57 | ECG_ITS ---
Test Reason : BACK PAIN Blood Pressure : */* mmHG Vent. Rate : 76 BPM Atrial Rate : 76 BPM P-R Int : 162 ms QRS Dur : 90 ms QT Int : 392 ms P-R-T Axes : 58 -31 18 degrees QTcB Int : 441 ms Normal sinus rhythm Left axis deviation Abnormal ECG No previous ECGs available Referred By: Elba Jorgensen Electronically Signed By: TREVOR LARRY MD
[2024-09-20 22:58] LABS: MANUAL DIFF FLAG NO
[2024-09-20 23:00] LABS: Basophils Percent Auto 0.5 % (0-2); Eosinophils Percent Auto 0.4 % (0-4); Hematocrit 40.7 % (42.0-52.0); Hemoglobin 14.1 g/dl (14.0-18.0); Imm Gran Abs Auto 0.03 X10*3/uL (0.00-0.03); Imm Gran Pct Auto 0.5 % (0.0-0.4); Lymphocytes Absolute Auto 0.5 X10*3/uL (1.2-4.9); Lymphocytes Percent Auto 8.5 % (20-40); Mean Corpuscular HGB Conc 34.6 g/dl (31.0-36.0); Mean Corpuscular Hemoglobin 27.7 pg (27.0-33.0); Mean Platelet Volume 10.7 fL (9.4-12.4); Monocytes Absolute Auto 0.8 X10*3/uL (0.1-1.2); Monocytes Percent Auto 14.6 % (2-11); Neutrophils Absolute Auto 4.3 x10*3/uL (2.0-8.3); Neutrophils Percent Auto 75.5 % (45-73); Platelet Count 159 X10*3/uL (160-400); Red Blood Count 5.09 X10*6/uL (4.60-5.80); Red Cell Distribution Width 13.3 % (11.0-16.0); White Blood Count 5.6 X10*3/uL (4.8-10.8)
[2024-09-20 23:16] LABS: Alanine Aminotransferase 25 U/L (0-40); Albumin Level 4.2 g/dL (3.5-5.0); Alkaline Phosphatase 69 U/L (39-117); Anion Gap 12 (12-20); Aspartate Amino Transferase 25 U/L (5-37); Bilirubin Total 0.8 mg/dL (0.0-1.0); Blood Urea Nitrogen 10 mg/dL (9-16); Calcium 8.4 mg/dL (8.4-10.2); Carbon Dioxide 24 mmol/L (22-29); Chloride 102 mmol/L (96-108); Creatinine Clr Calc Pharmacy 120.9; Estimated Glomerular Filt Rate > 60; Glucose Random 104 mg/dL (60-115); Magnesium 1.9 mg/dL (1.6-2.6); Potassium 4.1 mmol/L (3.3-5.1); Sodium 134 mmol/L (135-145); Total Protein 6.9 g/dL (6.5-8.0)
[2024-09-20] MEDS: Cyclobenzaprine HCl 5 MG TABLET PO (23:19)
[2024-09-20 23:24] LABS: Troponin-I High Sensitivity < 2.7 ng/L (<3.5-35.0)
[2024-09-20] MEDS: diazePAM 10 MG/2 ML CARTRIDGE 2.5 MG IVPUSH (23:43)
[2024-09-20] MEDS: Ketorolac Tromethamine 15 MG/ML VIAL IVPUSH (23:43)
[2024-09-20] MEDS: methylPREDNISolone Sod Succ 125 MG/2 ML VIAL 60 MG IVPUSH (23:49)
--- NOTE | 2024-09-21 00:15 | PC.NURSE ---
Took over care from nurse Roa at 23:00 medicated per oct.
[2024-09-21 01:55] VITALS: BP 138/70; PULSE 80; RESP 16; TEMP 36.4; O2SAT 98
--- NOTE | 2024-09-21 01:58 | PC.NURSE ---
reviewed discharge instructions with pt, pt verbalized understanding, pt able to ambulate with a steady gait, pt report 0/10 pain level at this charge, no sign of distress.
[2024-09-21 01:59] VITALS: BP 138/70; PULSE 80; RESP 16; TEMP 36.4; O2SAT 98
== END 2024-09-21 01:59 | disposition home or self-care (01) ==
PROVIDERS: Physician Assistant Medical; Emergency Provider Internal Medicine
DX: M51.369 Other intervertebral disc degeneration, lumbar region without mention of lumbar back pain or lower extremity pain (principal); R94.31 Abnormal electrocardiogram [ECG] [EKG]; M54.50 Low back pain, unspecified; Z79.899 Other long term (current) drug therapy
CPT/HCPCS: 36415; 72131; 80053; 83735; 84484; 85025; 93005; 96374; 96375; 99284; 99285; J1885; J2919; J3360

== ENCOUNTER → 2024-09-20 21:57 | Outpatient (BNV) | payer MEDICAID, SELFPAY | PROVIDERS: Emergency Provider Internal Medicine; Visit Provider Radiology Diagnostic Radiology | DX: M51.360 Other intervertebral disc degeneration, lumbar region with discogenic back pain only (principal); M51.26 Other intervertebral disc displacement, lumbar region | CPT/HCPCS: 72131 ==

== ENCOUNTER → 2024-09-20 21:57 | Outpatient (BNV) | payer MEDICAID, SELFPAY | PROVIDERS: Emergency Provider Internal Medicine; Visit Provider Internal Medicine Cardiovascular Disease | DX: R94.31 Abnormal electrocardiogram [ECG] [EKG] (principal) | CPT/HCPCS: 93010 ==

== ENCOUNTER → 2024-10-07 14:23 | Outpatient (BNVA) | payer MEDICAID, SELFPAY | PROVIDERS: Visit Provider Registered Nurse Emergency | DX: M51.369 Other intervertebral disc degeneration, lumbar region without mention of lumbar back pain or lower extremity pain (principal); M47.816 Spondylosis without myelopathy or radiculopathy, lumbar region; R20.2 Paresthesia of skin | CPT/HCPCS: 99202 ==